=== PATIENT | male | born 1935 | race Caucasian/White ===

== ENCOUNTER 2018-07-03 08:49 | Day surgery (SDC) ==
[2018-07-03] MEDS: TETRACAINE 0.5% UNIT-DOSE OP PRN ×2 (09:35→10:15)
[2018-07-03] MEDS: BETADINE OPTH PREP OP PRN ×2 (09:35→10:15)
[2018-07-03] MEDS: CYCLOGYL 2% OPTH OP PRN ×3 (09:36→09:46)
[2018-07-03] MEDS ORDERED: LIDOCAINE 1%/PHENYLEPHRINE 1.5% BSS (SURGERY) INTRAOCULA ONE (09:46)
[2018-07-03] MEDS ORDERED: BSS WITH EPINEPHRINE OP ONE (09:46)
[2018-07-03] MEDS ORDERED: BRIMONIDINE TARTRATE 0.2% OPTH SOL OP PRN (09:46)
[2018-07-03] MEDS ORDERED: LIDOCAINE 1% 20 ML MDV ID STA (09:46)
[2018-07-03] MEDS ORDERED: DEX-MOXI-KETOR OPTH INJ 1/0.5/0.4 MG/ML IO ONE (09:46)
[2018-07-03] MEDS ORDERED: ZOFRAN 4 MG/2 ML IVP ONE (09:46)
[2018-07-03 09:55] VITALS: TEMP 97
[2018-07-03] MEDS ORDERED: SUBLIMAZE ONE (10:15)
[2018-07-03] MEDS ORDERED: VERSED ONE (10:15)
[2018-07-03] MEDS ORDERED: ZOFRAN 4 MG/2 ML ONE (10:15)
[2018-07-03 16:59] VITALS: BP 125/68
== END 2018-07-03 11:15 | disposition home or self-care (01) ==
LOC: SURG 08:49
PROVIDERS: ATTEND Ophthalmology
DX: H25.12 Age-related nuclear cataract, left eye (principal)